=== PATIENT | female | born 1970 | race Caucasian/White ===

== ENCOUNTER 2023-09-21 21:29 | Emergency (ER) | payer OTHER, SELFPAY ==
[2023-09-21 21:31] VITALS: BP 183/104
[2023-09-21 21:59] LABS: Urine Albumin Negative (Neg - Trace); Urine Bilirubin Negative (Negative); Urine Character Clear (Clear); Urine Color Straw; Urine Glucose Negative (Negative); Urine Ketone Negative (Negative); Urine Leukocyte Negative (Negative); Urine Nitrite Negative (Negative); Urine Occult Blood Negative (Negative); Urine Specific Gravity 1.005 (<1.030); Urine Urobilinogen Negative (Neg - 1+)
[2023-09-21 22:14] VITALS: BP 144/91
--- NOTE | 2023-09-21 22:24 | ED.GENMED ---
Addendum entered and electronically signed by Nino Olsen DO 09/22/23 01:32:
Patient ambulated from the ER looks much improved
Original Note:
History of Present Illness
General
Chief Complaint: Dizziness
Source: patient and family
Exam Limitations: none
Time Seen by Provider: 09/21/23 22:07
Nursing documentation reviewed up to this point in time: agreed with
Travel History
Have you had any contact with someone who has COVID-19?: No
Do you have any symptoms of coronavirus? Fever > 100 degrees, chills, cough, shortness of breath, sore throat, loss of taste or smell, muscle aches, or headache?: No
History of Present Illness
History of Present Illness:
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
associated with nausea no chest pain or shortness of breath no abdominal pain no fevers no arm or leg weakness
Past History
Past History
ED Past Medical History: HTN
Social History
Tobacco: Non-smoker
Alcohol: None
Drug: None
Personal:
Living: with family
Employment: Employed
Review of Systems
Review of Systems
All Other Systems: Not applicable
Constitutional: Denies fever or fatigue
EENT: Reports no symptoms
Respiratory: Reports no symptoms
Cardiac: Reports no symptoms
ABD/GI: Reports nausea
: Reports no symptoms
Musculoskeletal: Reports no symptoms
Neurological: Reports dizzy; Denies headache or weakness
Phy Exam
Physical Exam
Physical Exam:
Physical Exam
General: no apparent distress, not acutely ill
Neck: No jaundice
Heart: s1/s2 regular rate and rhythm, no murmur. equal radial pulses.
Lungs: no acute respiratory distress. clear bilaterally
Abdomen: Nontender
Neuro: alert and oriented. no focal neurological deficits normal finger-nose no pronator drift muscle strength 5 out of 5 positive horizontal nystagmus to the right
Skin: no rash
Psychiatric: well kept. interactive and cooperative
Extremities: no edema.
Course
Orders/Labs/Results
Orders:
Orders
09/21/23 21:38
Urinalysis Reflex To Culture Urgent
Date Specimen was Collected: 09/21/23
Time Specimen was Collected: 21:36
09/21/23 22:17
Electrocardiogram (*1) Stat
Reason for Study: Other
Other Reason for Exam: neuro symptoms
EKG- Treatment ONCE
0.9% Sodium Chloride 1000 ml [Nss] 1,000 ml IV BOLUS
Diphenhydramine [Benadryl] 25 mg IV NOW STA
Ondansetron Injectable [Zofran] 4 mg IV NOW STA
09/21/23 22:30
Complete Blood Count/With Diff Urgent
Comprehensive Metabolic Panel Urgent
09/21/23 23:23
Dexamethasone Sod Phosphate [Decadron] 10 mg IV NOW STA
diazePAM [Valium Injection] 5 mg IV NOW STA
09/21/23 23:24
CT Head W/o Iv Contrast Urgent
Comment:
Reason For Exam: severe vertigo
Abnormal Lab Results
09/21/23
22:30
Creatinine 0.5 L mg/dL
(0.6-1.0)
Glucose 127 H mg/dl
(70-99)
Calcium 10.8 H mg/dl
(8.4-10.2)
AST 39 H U/L
(14-36)
ALT 55 H U/L
(0-35)
09/21/23 22:30
09/21/23 22:30
Vital Signs
Initial and Last Documented VS:
Initial Vital Signs
Temp Pulse Resp BP Pulse Ox
97.8 F 70 18 183/104 97
09/21/23 21:31 09/21/23 21:31 09/21/23 21:31 09/21/23 21:31 09/21/23 21:31
Last Documented Vital Signs
Temp Pulse Resp BP Pulse Ox
97.8 F 70 18 144/91 97
09/21/23 21:31 09/21/23 21:31 09/21/23 21:31 09/21/23 22:14 09/21/23 21:31
MDM/Problems Addressed
Differential Diagnosis Includes:
Benign positional vertigo M�ni�re's, dehydration electrolyte abnormality low clinical suspicion for CVA
MDM/Problems Addressed:
Dizziness
Chronic conditions affecting care: HTN
Acute Exacerbation and/or Progression of Chronic Illness: HTN
*Radiology
Radiology exam reviewed: radiology read reviewed
*Pulse Oximetry
Patient hypoxic: no
*EKG
Interpreted by ED Provider?: Yes
Interpretation: abnormal
Comparison EKG: no comparison EKG present
Heart Rate: 78
Rhythm: sinus
[place]: normal axis
Ischemia: non-specific ST changes
*Property Technician Interpretation
Rate: normal
Interpretation: normal
Heart Rate: 78
*Critical Care Note
Total Time (30-74mins, 75-104mins- exclusive of procedures): Not Applicable
Update Note
Update Note:
Update 11:20 PM labs EKG noted
1124, patient still symptomatic now feeling much better there is a bit of a language barrier son is acting as marriage counselor, will check CT to rule out hemorrhage, treat with some steroids and Valium
1:10 AM patient resting comfortably has been up to ambulate
Provided reassurance and answered to patient and son's questions
ED Attending Note
-
Portions of this chart may have been created with voice recognition software.� Occasional wrong word or��sound alike� substitutions may have occurred due to the inherent limitations of voice recognition software.
Discharge Plan
Departure
Patient Disposition: Home (Routine Discharge)
Date of Disposition: 09/22/23
Time of Disposition: 01:11
Patient with high blood pressure during this ER visit?: No
Condition: Good
Discharge Problem:
Vertigo
Instructions: Vertigo (a Type of Dizziness) (DC), Dizziness, Nonvertigo, (DC)
Prescriptions:
New
meclizine [Antivert] 25 mg tablet,chewable
25 mg PO Q8HPRN PRN (Reason: nausea or vertigo) Qty: 14 0RF
Referrals:
Vivian Mirza MD [Family Provider] -
Interventions
Interventions:
*Risk Screen - Suicide Last Done: 09/21/23 21:31
*General Assessment Last Done: 09/21/23 21:31
*Neglect/Abuse Screening Last Done: 09/21/23 21:31
ED- Fall Risk Assessment Last Done: 09/21/23 21:31
*ED COVID-19 Vaccine History Last Done: 09/21/23 21:31
[2023-09-21] MEDS: NSS 1000 IV (22:30)
[2023-09-21] MEDS: BENADRYL 25 MG IV (22:40)
[2023-09-21] MEDS: ZOFRAN 4 MG IV (22:40)
[2023-09-21 22:41] LABS: % Immature Granulocytes 0.2 % (0-0.5); % Lymphocytes 37.6 % (20.5-51.1); % Monocytes 7.5 % (1.7-9.3); % Neutrophils 50.7 % (42.2-75.2); Absolute Basophils 0.1 10^3/uL (0-0.2); Absolute Eosinophils 0.3 10^3/uL (0-0.7); Absolute Lymphocytes 3.1 10^3/uL (1.2-3.4); Absolute Monocytes 0.6 10^3/uL (0.1-0.6); Absolute Neutrophils 4.2 10^3/uL (1.4-6.5); Hematocrit 37.3 % (37.0-47.0); Mean Corp Hgb Conc. 34.9 g/dL (33.0-37.0); Mean Corpuscular Hgb 30.4 pg (27.0-31.0); Mean Corpuscular Volume 87.4 fL (81.0-99.0); Mean Platelet Volume 9.9 fL (7.4-10.4); Nucleated Red Blood Cells % 0 %; Platelet Count 281 10^3/uL (130-400); Red Blood Cell Count 4.27 10^6/uL (4.20-5.40); Red Cell Dist. Width 12.6 % (11.5-14.5); White Blood Cell Count 8.4 10^3/uL (4.8-10.8)
[2023-09-21 23:06] LABS: ALT (SGPT) 55 U/L (0-35); AST (SGOT) 39 U/L (14-36); Albumin 4.6 g/dl (3.5-5.0); Alkaline Phosphatase 61 U/L (38-126); Blood Urea Nitrogen 17 mg/dl (7-17); Calcium 10.8 mg/dl (8.4-10.2); Carbon Dioxide 29 mmol/L (22-30); Chloride 100 mmol/L (98-107); Glucose 127 mg/dl (70-99); Potassium 4.5 mmol/L (3.5-5.1); Sodium 138 mmol/L (135-145); Total Bilirubin 0.7 mg/dl (0.2-1.3); Total Protein 7.5 g/dl (6.3-8.2); eGFR > 60.00
[2023-09-21] MEDS: VALIUM INJECTION 5 MG IV (23:33)
[2023-09-21] MEDS: DECADRON 10 MG IV (23:33)
[2023-09-22 01:00] VITALS: BP 130/84
== END 2023-09-22 01:29 | disposition home or self-care (01) ==
LOC: EMR 21:29
PROVIDERS: EMERGENCY PHYSICIAN Emergency Medicine; FAMILY PHYSICIAN Family Medicine
DX: R42 Dizziness and giddiness (principal); R11.0 Nausea; I10 Essential (primary) hypertension
CPT/HCPCS: 99284; 96374; 96375 ×3; 96361; 70450; 80053; 81003; 85025; 93005

== ENCOUNTER 2025-02-24 10:25 | Emergency (ER) | payer OTHER, SELFPAY ==
[2025-02-24 10:31] VITALS: BP 146/79
[2025-02-24] MEDS: NORCO 5/325 2 TABLET PO (11:47)
[2025-02-24] MEDS: AUGMENTIN 875 MG/125 MG 1 TABLET PO (11:47)
--- NOTE | 2025-02-24 13:18 | ED.GENMED ---
History of Present Illness
General
Chief Complaint: Ear Problem
Source: patient and family
Time Seen by Provider: 02/24/25 10:42
History of Present Illness
History of Present Illness:
Note:
CHIEF COMPLAINT(S)
Right ear pain radiating towards the teeth, persisting for four days.
HISTORY OF PRESENT ILLNESS
The patient, a 54-year-old female, presents with a four-day history of pain in the right ear, radiating towards the teeth. She has been using ear drops with no relief. According to her son, who is at the bedside, the pain was severe enough to keep
her awake last night. She denies fever, vomiting, dental pain, and headaches. The patient has recently been swimming frequently in a pool.
ADDITIONAL HISTORY OBTAINED FROM SOURCES OTHER THAN THE PATIENT
The patients son reports that the ear pain was severe, preventing her from sleeping last night.
CHRONIC MEDICAL CONDITIONS SIGNIFICANTLY AFFECTING CARE
The patient has a history of hypertension, hyperlipidemia, and diabetes mellitus.
MEDICATIONS
The patient is currently taking Metformin, Rosuvastatin, and Losartan.
PHYSICAL EXAM
General: Alert, no acute distress.
Head: Normocephalic, atraumatic.
Neck: Supple, trachea midline.
Eye, Ears, Nose, Mouth, and Throat:
- Right ear: Swelling noted to the right pinna with swelling extending into the right external auditory canal. There is pain with movement of the earlobe. Presence of a pre-auricular lymph node noted.
- Unable to visualize the right tympanic membrane due to swelling.
- Left ear: Normal. Left tympanic membrane is normal.
- No oral or nasal abnormalities. Oral mucosa is moist.
Cardiovascular: Normal peripheral perfusion, no edema.
Respiratory: No respiratory distress.
Gastrointestinal: Abdomen nondistended.
Neurological: Alert and oriented to person, place, time, and situation. Cranial nerves are intact. No focal motor deficits noted.
Psychiatric: Cooperative, appropriate mood & affect.
PROBLEM LIST
Acute: Right ear pain, Right external otitis (suspected).
Chronic: Hypertension, Hyperlipidemia, Diabetes Mellitus.
PLAN
Further evaluation of the right ear swelling and tenderness. Consider initiation of treatment for suspected external otitis, potentially with topical and/or oral antibiotics, after discussing with the attending physician.
DIFFERENTIAL DIAGNOSIS
The Differential Diagnosis includes, in no particular order and is not limited to:
1. Otitis Externa
2. Temporomandibular Joint Disorder
3. Ear Canal Foreign Body
4. Dental Abscess
5. Herpes Zoster Oticus (Mani Cuello Syndrome)
6. Otitis Media
7. Mastoiditis
8. Parotitis
9. Lymphadenopathy secondary to infection
10. Sinusitis
CARE-UPDATE
02/24/25 - 13:18
Antibiotic drops and viscous lidocaine applied to right ear; earwick positioned correctly in the right auditory canal for improved administration.
Disposition:
SUMMARY OF ENCOUNTER
The patient is a 54-year-old female who presented with persistent right ear pain for a duration of four days. The pain radiated towards her teeth and was severe enough to disrupt sleep. She has been using ear drops without relief. Physical
examination indicated right otitis externa with significant swelling, making it difficult for the ear drops to reach the external auditory canal. A new earwick was applied to facilitate proper antibiotic drop administration. Furthermore, oral
antibiotic therapy and pain management were addressed. No mastoid tenderness or ear proptosis was noted, ruling out mastoiditis, and there was no fever observed during the examination.
DISPOSITION
Discharge
ASSESSMENT
The patient presents with right otitis externa, likely exacerbated by recent swimming activities. There was significant ear canal swelling, preventing effective treatment with previous ear drops. A referral to an Ear, Nose, and Throat (ENT)
specialist for follow-up was advised.
EMERGENCY TREATMENTS ADMINISTERED
Antibiotic ear drops (Ciprodex) and placement of an earwick to aid in the administration of medication to the external auditory canal.
PLAN
The patient will continue with Ciprodex ear drops and start oral antibiotics (Amoxicillin and Clavulanate). Pain management with hydrocodone was prescribed. The patient was instructed to monitor for increasing swelling, pain in the mastoid area, or
the development of fever and to return if these symptoms occur. An ENT follow-up was recommended for ongoing evaluation and management.
PATIENT EDUCATION AND COUNSELING
The patient was educated on the importance of adhering to the prescribed treatment regimen to manage her otitis externa effectively. She was informed about the potential signs of complications, such as increasing swelling, mastoid pain, or fever,
and instructed to return to the emergency department if any of these symptoms arise. Referral to an ENT specialist was emphasized for comprehensive follow-up care.
FOLLOW-UP INSTRUCTIONS
The patient was advised to schedule a follow-up appointment with an ENT specialist for further evaluation and management.
MEDICATION RECONCILIATION
- Amoxicillin and Clavulanate (Augmentin) prescribed for oral antibiotic therapy.
- Ciprofloxacin and Dexamethasone (Ciprodex) ear drops prescribed.
- Hydrocodone prescribed for pain management.
MEDICAL DECISION MAKING
-Complexity of Data Reviewed: Chronic conditions affecting care [Hypertension, Hyperlipidemia, Diabetes Mellitus]. Differential diagnosis included: Otitis Externa, Temporomandibular Joint Disorder, Ear Canal Foreign Body, Dental Abscess, Herpes
Zoster Oticus (Mani Cuello Syndrome), Otitis Media, Mastoiditis, Parotitis, Lymphadenopathy secondary to infection, Sinusitis.
-Data:
Category 2:
Clinical information was obtained from an independent historian, the patients son, who provided details about the severity of the ear pain and its impact on the patients sleep.
-Risk:
Prescription medication was prescribed (Amoxicillin and Clavulanate, Ciprofloxacin and Dexamethasone ear drops, Hydrocodone).
DIAGNOSIS
- Otitis Externa, Right Ear (H60.91)
Past History
Past History
ED Past Medical History: HTN
Social History
Tobacco: Non-smoker
Alcohol: None
Drug: None
Personal:
Living: with family
Employment: Employed
Phy Exam
Physical Exam
Physical Exam:
.
Course
Orders/Labs/Results
Orders:
Orders
02/24/25 11:32
Viscous Lidocaine 2% [Xylocaine Viscous Cup] 15 ml .ROUTE .STK-MED ONE
02/24/25 11:37
Amoxicillin 875 mg/Clav 125 mg [Augmentin 875 mg/125 mg] 1 tablet PO NOW STA
02/24/25 11:38
Hydrocodone 5/APAP 325 [[place] 5/325] 2 tablet PO NOW STA
Vital Signs
Initial and Last Documented VS:
Initial Vital Signs
Temp Pulse Resp BP Pulse Ox
98.0 F 86 16 146/79 98
02/24/25 10:31 02/24/25 10:31 02/24/25 10:31 02/24/25 10:31 02/24/25 10:31
Last Documented Vital Signs
Temp Pulse Resp BP Pulse Ox
98.0 F 86 16 146/79 98
02/24/25 10:31 02/24/25 10:31 02/24/25 10:31 02/24/25 10:31 02/24/25 13:20
*Pulse Oximetry
SaO2: 98
Oxygen Mode of Delivery: Room air
Patient hypoxic: no
*Critical Care Note
Total Time (30-74mins, 75-104mins- exclusive of procedures): Not Applicable
ED Attending Note
-
Portions of this chart may have been created with voice recognition software.� Occasional wrong word or��sound alike� substitutions may have occurred due to the inherent limitations of voice recognition software.
Discharge Plan
Departure
Patient Disposition: Home (Routine Discharge)
Date of Disposition: 02/24/25
Time of Disposition: 13:19
Patient with high blood pressure during this ER visit?: Yes
Discharge Problem:
Acute Otitis Externa
Instructions: Outer Ear Infection (DC), BLOOD PRESSURE
Prescriptions:
New
hydrocodone-acetaminophen 5-325 mg tablet
2 tab PO Q6H PRN (Reason: Pain) Qty: 14 0RF
amoxicillin-pot clavulanate 875-125 mg tablet
1 tab PO BID Qty: 14 0RF
ciprofloxacin-dexamethasone 0.3-0.1 % drops,suspension
4 drp otic (ear) BID 7 Days Qty: 7.5 0RF
No Action
meclizine [Antivert] 25 mg tablet,chewable
25 mg PO Q8HPRN PRN (Reason: nausea or vertigo) Qty: 14 0RF
Referrals:
Julio César Mckeon MD [Active, Otology]
Vivian Mirza MD [Family Provider, Family Practice]
Activity Restrictions/Additional Instructions:
Please see your doctor or ENT in the next 3 to 5 days for follow-up and reevaluation. Return immediately for increased ear swelling or abnormal position, fevers, pain behind the ear, vomiting or any other concerns.
Interventions
Interventions:
*Risk Screen - Suicide Last Done: 02/24/25 10:31
*Neglect/Abuse Screening Last Done: 02/24/25 10:31
*Nursing Disposition Last Done: 02/24/25 13:39
Discharge Date and Time
Discharge Date/Time: 02/24/25 13:42
Print Language: [place]EN[place]
== END 2025-02-24 13:42 | disposition home or self-care (01) ==
LOC: EMR 10:25
PROVIDERS: EMERGENCY PHYSICIAN Emergency Medicine; FAMILY PHYSICIAN Family Medicine
DX: H60.501 Unspecified acute noninfective otitis externa, right ear (principal); I10 Essential (primary) hypertension; E78.5 Hyperlipidemia, unspecified; E11.9 Type 2 diabetes mellitus without complications; Z79.899 Other long term (current) drug therapy; Z79.84 Long term (current) use of oral hypoglycemic drugs
CPT/HCPCS: 99283